=== PATIENT | male | born 1940 | race Caucasian/White ===

== ENCOUNTER 2018-05-14 08:08 | Observation (INO) ==
[2018-05-14] MEDS ORDERED: Aspirin 325 MG TABLET PO STA (08:33)
--- NOTE | 2018-05-14 08:34 | Emergency Department Note ---
Disposition Clinical Impression: Abnormal EKG, Uncontrolled hypertension Chest pain Qualifiers: Chest pain type: unspecified Qualified Code(s): R07.9 - Chest pain, unspecified Disposition: Admitted As Inpatient Condition: Good Forms: ED Satisfaction Letter Chest Pain HPI - General Chief Complaint: ED Chest Pain Stated Complaint: CP / Elevated BP Time Seen by Provider: 05/14/18 08:19 Source: patient Mode of arrival: ambulatory Limitations: no limitations Vital Signs Reviewed: Yes Nursing Notes Reviewed: Yes - History of Present Illness HPI Narrative: Past medical history of kidney stones, previous smoker, orthopedic procedures. Last notes from record review show stress test in 2014. Patient was recently se en by ophthalmology notified of abnormal blood pressures. Patient states blood pressures typically been in the 140s. Patient has had blood pressures climbing into the high 100s and low 200s. He presents today for evaluation of chest pain. Chest pain is the left side of his chest and described as a deep pressure. The patient states nothing makes these better or worse. The pain is been constant since 3 AM this morning. Patient has EKG that shows [address] elevation in 2 and 3 with biphasic T-wave throughout the precordial leads. He has T-wave depression and inversion in 1 and aVL. These are similar in morphology to previous EKG of 12/15/2014. Current EKG is improved from previous of 2014. Stress test was negative in 2014. At this time the patient will undergo aspirin as well as nitroglycerin glycerin therapy. Patient does not appear in acute distress. Severity scale (1-10): 3 - Related Data Allergies Allergy/AdvReac Type Severity Reaction Status Date / Time No Known Allergies Allergy Unverified 07/01/15 09:47 Review of Systems: CONSTITUTIONAL: No weight loss, fever, chills, weakness or fatigue. HEENT: Eyes: No visual changes. Ears, Nose, Throat: No hearing loss, difficulty talking or unable to swallow. SKIN: No rash or itching. CARDIOVASCULAR: Left-sided chest pressure RESPIRATORY: No shortness of breath, cough or sputum. GASTROINTESTINAL: No anorexia, nausea, vomiting or diarrhea. No abdominal pain or blood. GENITOURINARY: No burning on urination or hematuria. NEUROLOGICAL: No headache, dizziness, syncope, paralysis, ataxia, numbness or tingling in the extremities. No change in bowel or bladder control. MUSCULOSKELETAL: No muscle pain, back pain, joint pain or stiffness. Chest Pain PMH - Past Medical History Medical history: Reports: kidney stones Surgical history: Reports: orthopedic, other, other Psychiatric history: Reports: no psych history - Social History Smoking Status: Former smoker Alcohol use: Reports: none Drug use: Reports: none Physical Exam General: Well appearing, nontoxic, no acute distress Head: Normocephalic Atraumatic Eyes: PERRL, EOMI ENT: Airway patent, no stridor Neck: supple Chest: Lungs clear to auscultation bilateral Cardiac: Regular rate and rhythm, significant systolic murmur at the left sternal border Abdomen: soft, nontender, nondistended; no guarding, rebound, or tenderness to percussion Musculoskeletal: Calves symmetric, nontender, no palpable cord Skin: No rash, normal skin tone Neuro: Alert and Oriented to person, place, and time; No focal deficit Course Course Narrative: Elevated blood pressure with chest pain abnormal EKG, heart murmur and insufficient echocardiogram from May 07/2018 to further explain or rule out underlying diagnosis. - Reevaluation(s) Reevaluation #1: Nitroglycerin was lead chest pain to a 2 out of 10. Patient does not appear to be in distress. Topical nitroglycerin will be applied. Patient has worsening chest pain a nitro drip will be started. Abnormal EKG but unchanged from prior. Chest pressure without typical exertional symptoms that was significantly relieved by nitroglycerin. No recent cardiac evaluation. Patient does have underlying hypertension with initial systolic greater than 200. Patient had previously been started on metoprolol but has not taken it secondary to concern for side effects. No previous workup for rather sudden onset high blood pressure. Patient would benefit from further evaluation of both cardiac and hypertension processes. - Consultations Consultation #1: Discussed with hospitalist. Patient accepted for admission. Vital Signs Temperature 99.0 F 05/14/18 08:12 Pulse Rate 70 05/14/18 08:12 Respiratory Rate 17 05/14/18 08:12 Blood Pressure 223/92 05/14/18 08:12 O2 Sat by Pulse Oximetry 97 05/14/18 08:12 Temperature 99.0 F 05/14/18 08:27 Pulse Rate 65 05/14/18 09:05 Respiratory Rate 16 05/14/18 08:27 Blood Pressure 144/81 05/14/18 09:05 O2 Sat by Pulse Oximetry 95 05/14/18 09:05 Oxygen Delivery Oxygen Delivery Room Air Chest Pain - Medical Records Medical records reviewed: Yes I reviewed the patient's medical records. - Lab Data Lab results reviewed: Yes I reviewed the patient's lab results. Result diagrams: 05/14/18 08:35 05/14/18 08:29 Lab Results 05/14/18 05/14/18 05/14/18 Range/Units 08:19 08:29 08:35 WBC (4.3-11.1) K/mcL RBC (4.19-5.50) M/mcL Hgb (12.9-16.9) g/dL Hct (37.5-50.1) % MCV (83.0-100.0) fL MCH (28.0-33.3) pg MCHC (31.6-35.5) g/dL RDW (11.5-14.5) % Plt Count (140-400) K/mcL MPV (9.4-12.4) fL Immature Gran % (0-4) % Seg Neutrophils % % Lymphocytes % % Monocytes % % Eosinophils % % Basophils % % Neutrophils # (1.6-8.9) K/mcL Lymphocytes # (0.6-4.6) K/mcL Monocytes # (0.0-1.3) K/mcL Eosinophils # (0.0-0.6) K/mcL Basophils # (0.0-0.2) K/mcL PT 11.6 (9.4-12.1) Seconds INR 1.0 APTT 33.5 (26.0-36.0) Seconds Sodium 136 (136-145) mEq/L Potassium 4.0 (3.5-5.1) mEq/L Chloride 103 (98-107) mEq/L Carbon Dioxide 26 (23-29) mEq/L BUN 18 (8-23) mg/dL Creatinine 0.84 (0.70-1.30) mg/dL Est GFR ( Amer) > 60 (> 60) Est GFR (Non-Af Amer) > 60 (> 60) BUN/Creatinine Ratio 21 (6-26) Glucose 112 H (70-105) mg/dL Calculated Osmolality 285 (280-300) Calcium 9.6 (8.6-10.3) mg/dL Troponin I < 0.03 (< 0.04) ng/mL B-Natriuretic Peptide 249 H (Less than 100) pg/mL 05/14/18 Range/Units 08:35 WBC 5.9 (4.3-11.1) K/mcL RBC 6.25 H (4.19-5.50) M/mcL Hgb 18.0 H (12.9-16.9) g/dL Hct 52.6 H (37.5-50.1) % MCV 84.2 (83.0-100.0) fL MCH 28.8 (28.0-33.3) pg MCHC 34.2 (31.6-35.5) g/dL RDW 12.7 (11.5-14.5) % Plt Count 170 (140-400) K/mcL MPV 9.5 (9.4-12.4) fL Immature Gran % 0.9 (0-4) % Seg Neutrophils % 62.0 % Lymphocytes % 28.1 % Monocytes % 8.0 % Eosinophils % 0.7 % Basophils % 0.3 % Neutrophils # 3.7 (1.6-8.9) K/mcL Lymphocytes # 1.7 (0.6-4.6) K/mcL Monocytes # 0.5 (0.0-1.3) K/mcL Eosinophils # 0.0 (0.0-0.6) K/mcL Basophils # 0.0 (0.0-0.2) K/mcL PT (9.4-12.1) Seconds INR APTT (26.0-36.0) Seconds Sodium (136-145) mEq/L Potassium (3.5-5.1) mEq/L Chloride (98-107) mEq/L Carbon Dioxide (23-29) mEq/L BUN (8-23) mg/dL Creatinine (0.70-1.30) mg/dL Est GFR ( Amer) (> 60) Est GFR (Non-Af Amer) (> 60) BUN/Creatinine Ratio (6-26) Glucose (70-105) mg/dL Calculated Osmolality (280-300) Calcium (8.6-10.3) mg/dL Troponin I (< 0.04) ng/mL B-Natriuretic Peptide (Less than 100) pg/mL - EKG Data EKG attestation: Yes I reviewed and interpreted this EKG.
[2018-05-14 08:38] LABS: Basophils % 0.3 %; Eosinophils % 0.7 %; Hematocrit 52.6 % (37.5-50.1); Immature Granulocytes % 0.9 % (0-4); Lymphocytes # 1.7 K/mcL (0.6-4.6); Lymphocytes % 28.1 %; Mean Corpuscular HGB Conc 34.2 g/dL (31.6-35.5); Mean Corpuscular Hemoglobin 28.8 pg (28.0-33.3); Mean Corpuscular Volume 84.2 fL (83.0-100.0); Mean Platelet Volume 9.5 fL (9.4-12.4); Monocytes # 0.5 K/mcL (0.0-1.3); Neutrophils # 3.7 K/mcL (1.6-8.9); Platelet Count 170 K/mcL (140-400); Red Blood Count 6.25 M/mcL (4.19-5.50); Red Cell Distribution Width 12.7 % (11.5-14.5)
[2018-05-14] MEDS: Nitroglycerin 0.4 MG TAB.SUBL SL PRN ×3 (08:39→09:06)
[2018-05-14 08:46] LABS: Prothrombin Time 11.6 Seconds (9.4-12.1)
[2018-05-14 08:49] LABS: Activated Partial Thrombo Time 33.5 Seconds (26.0-36.0)
[2018-05-14 09:01] LABS: BUN/Creatinine Ratio 21 (6-26); Blood Urea Nitrogen 18 mg/dL (8-23); Calcium 9.6 mg/dL (8.6-10.3); Carbon Dioxide 26 mEq/L (23-29); Chloride 103 mEq/L (98-107); Glucose 112 mg/dL (70-105); Osmolality,Calculated 285 (280-300); Sodium 136 mEq/L (136-145); Troponin I < 0.03 ng/mL (< 0.04); eGFR For Non-African Americans > 60 (> 60)
[2018-05-14] MEDS ORDERED: Nitroglycerin 1 INCH/GM PACKET TP STA (09:21)
[2018-05-14] MEDS ORDERED: Naloxone 0.4 MG/ML INJ IVP PRN (10:49)
[2018-05-14] MEDS ORDERED: traZODone 50 MG TABLET PO PRN (10:53)
--- NOTE | 2018-05-14 11:01 | Internal Med History&Physical ---
Date of Encounter: 05/14/18 Time of Encounter: 10:00 Internal Medicine - H&P: HPI Chief complaint: Chest pain Admitted From: Home Plans for Post Hospital Care: Home History of present illness: Patient is a 77-year-old male with past medical history of recently diagnosed hypertension who presents to the ER on 05/14/18 due to chest pain and uncontrolled blood pressures. Patient reports for approximately the last month of having intermittent left- sided chest pain which he describes as pressure without any radiation and no provoking or relieving factors. Patient denies any other associated symptoms. Patient reports again experiencing chest discomfort this morning in addition to having elevated blood pressure readings with systolic pressures in the 200s. Patient does report of having uncontrolled blood pressures the last several weeks being managed by outpatient primary care provider. Patient decided to come to the ER for evaluation. In the ER, patient was found to have initial blood pressure reading of 223/92 with elevated BNP of 249. Chest x-ray showed no acute findings and stable cardiomegaly without overt failure. Patient will be admitted to the observation unit for ACS rule out and uncontr olled hypertension. Past Med Surg Social Fam HX - Past Medical History Medical history: kidney stones Additional medical history: HEART MURMUR Psychiatric history: no psych history - Past Surgical History Surgical History: orthopedic, other, other Additional surgical history: Kidney Stone Surgery. Right hip surgery - Social History Smoking Status: Former smoker Smokeless Tobacco Status: No Alcohol use: none Drug use: none - Family History Mother Living Status: Father Living Status: Internal Medicine - H&P: Meds Alfuzosin HCl [Uroxatral] 10 mg PO DAILY 05/14/18 [History] Aspirin [Adult Aspirin Regimen] 81 mg PO DAILY 05/14/18 [History] Gluc Ayala/Chondro Ayala A/Vit C/Mn [Glucosamine Chondroitin Tab] 3 tab PO DAILY 05/14/18 [History] Lisinopril [Zestril] 10 mg PO BID 05/14/18 [History] Multivitamin [One Daily Essential] 1 tab PO DAILY 05/14/18 [History] Oxybutynin [Ditropan] 5 mg PO DAILY 05/14/18 [History] traZODone [TraZODone] 50 mg PO HS PRN 05/14/18 [History] Allergy/AdvReac Type Severity Reaction Status Date / Time No Known Allergies Allergy Verified 05/14/18 10:20 All Systems PM: A 10-system review of systems was performed and is negative for pertinent findings except as documented above in the HPI. - Constitutional Vitals: Temp Pulse Resp BP Pulse Ox 99.0 F 66 18 150/75 95 05/14/18 08:27 05/14/18 09:43 05/14/18 09:43 05/14/18 09:43 05/14/18 09:43 General appearance: Present: A&O X 3, no acute distress Exam: As above - Eye Eye exam: Present: normal appearance - ENT ENT exam: Present: mucous membranes moist - Respiratory Respiratory exam: Present: CTAB. Absent: accessory muscle use, rales, rhonchi, wheezes - Cardiovascular Cardiovascular exam: Present: RRR, +S1, +S2. Absent: diastolic murmur, gallop, rubs, systolic murmur - GI/Abdominal GI/Abdominal exam: Present: normal bowel sounds, soft, no peritoneal signs. Absent: distended, tenderness - Extremities Exam Extremities exam: Absent: pedal edema - Neurological Exam Neurological exam: Present: oriented X3 - Psychiatric Psychiatric exam: Present: normal mood - Skin Skin exam: Present: normal color Internal Med - H&P Results - Labs CBC & Chem 7: 05/14/18 08:35 05/14/18 08:29 Labs: Short CBC 05/14/18 Range/Units 08:35 WBC 5.9 (4.3-11.1) K/mcL Hgb 18.0 H (12.9-16.9) g/dL Hct 52.6 H (37.5-50.1) % Plt Count 170 (140-400) K/mcL Neutrophils # 3.7 (1.6-8.9) K/mcL BMP 05/14/18 08:29 Sodium 136 Potassium 4.0 Chloride 103 Carbon Dioxide 26 BUN 18 Creatinine 0.84 Glucose 112 H Calcium 9.6 Cardiac Enzymes 05/14/18 Range/Units 08:29 Troponin I < 0.03 (< 0.04) ng/mL - Impressions ITS Impressions Chest X-Ray 05/14/18 08:19 IMPRESSION: 1. No active pulmonary disease. 2. Stable cardiomegaly without overt failure. D/ / Russell Angeles MD / Russell Angeles MD Interpreting Provider: Russell Angeles MD - Assessment and plan (1) Chest pain Current Visit: Yes Status: Acute Assessment and plan: Patient BNP elevated at 249 but first set of troponins negative Echocardiogram on 05/07/18 showed LVEF of 60% with mild left ventricular di astolic dysfunction Nuclear medicine stress test pending for ACS rule out Qualifiers: Chest pain type: unspecified Qualified Code(s): R07.9 - Chest pain, unspecified (2) Uncontrolled hypertension Current Visit: Yes Status: Acute Assessment and plan: Blood pressures are controlled on lisinopril 10 mg twice daily Will add amlodipine 10 mg daily and monitor overnight (3) DVT prophylaxis Current Visit: Yes Status: Acute Assessment and plan: Subcutaneous heparin - Time Spent With Patient Total time spent is greater than 50% in coordination of care (as documented) at patient's floor/unit and/or counseling patient:
[2018-05-14] MEDS ORDERED: Ibuprofen 800 MG TABLET PO ONE (15:53)
[2018-05-14] MEDS: *HR* Heparin 5,000 UNIT/ML VIAL SQ SCH (21:54)
[2018-05-14] MEDS: amLODIPine 5 MG TABLET PO SCH (23:33)
[2018-05-15 04:07] LABS: Hematocrit 50.2 % (37.5-50.1); Hemoglobin 16.9 g/dL (12.9-16.9); Mean Corpuscular HGB Conc 33.7 g/dL (31.6-35.5); Mean Corpuscular Hemoglobin 28.6 pg (28.0-33.3); Mean Corpuscular Volume 84.9 fL (83.0-100.0); Platelet Count 158 K/mcL (140-400); Red Blood Count 5.91 M/mcL (4.19-5.50); Red Cell Distribution Width 12.8 % (11.5-14.5)
[2018-05-15 04:08] LABS: Basophils % 0.6 %; Eosinophils # 0.1 K/mcL (0.0-0.6); Immature Granulocytes % 0.6 % (0-4); Lymphocytes # 2.1 K/mcL (0.6-4.6); Lymphocytes % 32.8 %; Mean Platelet Volume 9.6 fL (9.4-12.4); Monocytes # 0.6 K/mcL (0.0-1.3); Monocytes % 9.8 %; Neutrophils # 3.5 K/mcL (1.6-8.9); Segmented Neutrophils % 54.2 %
[2018-05-15 04:26] LABS: BUN/Creatinine Ratio 21 (6-26); Blood Urea Nitrogen 16 mg/dL (8-23); Calcium 8.9 mg/dL (8.6-10.3); Carbon Dioxide 26 mEq/L (23-29); Chloride 106 mEq/L (98-107); Glucose 99 mg/dL (70-105); Osmolality,Calculated 291 (280-300); Potassium 4.1 mEq/L (3.5-5.1); Sodium 140 mEq/L (136-145); eGFR For Non-African Americans > 60 (> 60)
[2018-05-15] MEDS ORDERED: Regadenoson 0.4 MG/5 ML SYRINGE IVP ONE (05:47)
[2018-05-15] MEDS: *HR* Heparin 5,000 UNIT/ML VIAL SQ SCH (06:02)
[2018-05-15] MEDS ORDERED: VIT C PO SCH (09:00)
[2018-05-15] MEDS ORDERED: CHONDRO SU A PO SCH (09:00)
[2018-05-15] MEDS ORDERED: Multivit/Ca/Min/Fe/FA 1 TAB TABLET PO SCH (09:00)
[2018-05-15] MEDS ORDERED: [UNRECOGNIZED DRUG - OTHER] PO SCH (09:00)
[2018-05-15] MEDS ORDERED: GLUC SU PO SCH (09:00)
[2018-05-15] MEDS ORDERED: Aspirin Enteric Coated 81 MG Tablet PO SCH (09:00)
[2018-05-15] MEDS: amLODIPine 5 MG TABLET PO SCH (09:10)
[2018-05-15 11:16] VITALS: BP 149/84
--- NOTE | 2018-05-15 12:57 | Discharge Summary ---
- NOTES TO OUTPATIENT PROVIDER Notes to Outpatient Provider: HTN urgency on admission with chest pressure. Amlodipine added; HTN improved. D/c with new rx Amlodipine, continue LIDYA I. ACS r/u; negative stress test; appears to be musculoskeletal in origin as pain is worse with range of motion and palpation of chest. Troponins negative x3. Echo 05/07/18 EF 60%, mild LVH, Mild LVDD, mild-mod AR, mild MR, mild-mod TR. f/u with cardiology Orders not resulted at time of discharge: Pending orders 05/14/18 16:47 NM abeba perf SPECT multi [NM] Routine Date of Encounter: 05/15/18 Time of Encounter: 12:48 - Discharge Diagnosis (1) Chest pain Priority: Primary Status: Ruled-out Qualifiers: Chest pain type: unspecified Qualified Code(s): R07.9 - Chest pain, unspecified (2) Uncontrolled hypertension Priority: Secondary Status: Resolved Assessment and Plan: continue LIDYA I, & Amlodipine (3) DVT prophylaxis Priority: Secondary Status: Acute Hospital course: Mr. Maxwell is a 77 year old male who presented with HTN and chest pressure. Given amlodipine and LIDYA I and HTN resolved. Chest pain improved. Underwent stress test for ACS r/o. Stress negative for perfusion defect or ischemia. Chest pressure resolved. Notes discomfort with palpating sternum. Consider musculoskeletal etiology. Patient instructed to return to the ED showed the chest pain persist and/or worsen and should he began to develop shortness of breath, dizziness, fatigue, diaphoresis, nausea. Patient verbalized understanding denies any further questions at this time. Discharge discussed with: patient, nurse - Time Spent with Patient Total time spent providing and/or coordinating discharge services: Less than 30 minutes - Discharge Medications Prescriptions: amLODIPine [Norvasc] 10 mg PO DAILY 30 Days #60 tablet Home Medications: Alfuzosin HCl [Uroxatral] 10 mg PO DAILY 05/14/18 [History] Aspirin [Adult Aspirin Regimen] 81 mg PO DAILY 05/14/18 [History] Gluc Ayala/Chondro Ayala A/Vit C/Mn [Glucosamine Chondroitin Tab] 3 tab PO DAILY 05/14/18 [History] Lisinopril [Zestril] 10 mg PO BID 05/14/18 [History] Multivitamin [One Daily Essential] 1 tab PO DAILY 05/14/18 [History] Oxybutynin [Ditropan] 5 mg PO DAILY 05/14/18 [History] traZODone [TraZODone] 50 mg PO HS PRN 05/14/18 [History] amLODIPine [Norvasc] 10 mg PO DAILY 30 Days #60 tablet 05/15/18 [Rx] Allergies/Adverse Reactions: Allergy/AdvReac Type Severity Reaction Status Date / Time No Known Allergies Allergy Verified 05/14/18 10:20 Date of admission: 05/14/18 09:49 Primary care physician: PCP NONE Discharging clinician: Kanu De Jesus Anticipated date of discharge: 05/15/18 - Constitutional Vitals: Temp Pulse Resp BP Pulse Ox 98.3 F 57 16 149/84 94 05/15/18 11:15 05/15/18 11:15 05/15/18 11:15 05/15/18 11:15 05/15/18 11:15 General appearance: Present: A&O X 3, no acute distress Exam: see exam - Head Head exam: Present: atraumatic, normocephalic - Eye Eye exam: Present: PERRL, conjuntiva pink, sclera anicteric Pupils: Present: PERRL - Neck Neck exam general surgery: Present: supple, trachea midline. Absent: lymphadenopathy - Respiratory Respiratory exam: Present: chest wall tenderness (sternal tenderness to palpation), CTAB. Absent: accessory muscle use, rales, rhonchi, wheezes - Cardiovascular Cardiovascular exam: Present: RRR, +S1, +S2. Absent: diastolic murmur, gallop, rubs, systolic murmur - GI/Abdominal GI/Abdominal exam: Present: normal bowel sounds, soft, no peritoneal signs. Absent: distended, tenderness - Extremities Exam Extremities exam: Present: warm, radial pulses palpable and symmetrical. Absent: calf tenderness, cyanotic, pedal edema - Neurological Exam Neurological exam: Present: alert, CN II-XII intact, oriented X3, no focal deficits. Absent: pronater drift, facial droop, speech deficit - Skin Skin exam: Present: dry, intact - Patient Status Disposition: Home, Self-Care Condition: Good Functional capacity at discharge: independent ambulation Overall status at discharge: patient is progressing back to baseline - Discharge Instructions Instructions: Chronic Hypertension (DC) Follow Up With: NONE,PCP [Primary Care Provider] - - Diet and Activity Activity: increase activity as tolerated, resume usual activities as tolerated Diet: low fat, low cholesterol, low salt diet
--- NOTE | 2018-05-15 13:13 | Electrocardiograph Report ---
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
--- NOTE | 2018-05-18 19:16 | Electrocardiograph Report ---
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
== END 2018-05-15 14:00 | disposition home or self-care (01) ==
LOC: EMEROOARM 08:08 → 3BNU 08:08
PROVIDERS: ADMIT Hospitalist; ATTEND Hospitalist